=== PATIENT | female | born 1980 | race Caucasian/White ===

== ENCOUNTER 2019-05-29 19:18 | Emergency (ER) | payer BC ==
[~2019-05-29] VITALS: Ht 162.6 cm; Wt 63.5 kg
[2019-05-29 19:35] LABS: URINE BILIRUBIN NEGATIVE (Negative); URINE BLOOD 3+ (Negative); URINE CLARITY CLEAR; URINE COLOR YELLOW; URINE GLUCOSE-RANDOM NEGATIVE (Negative); URINE KETONES NEGATIVE (Negative); URINE LEUKOCYTES-REFLEX TRACE (Negative); URINE NITRITE-REFLEX NEGATIVE (Negative); URINE PROTEIN 2+ (Negative); URINE SPECIFIC GRAVITY >= 1.030 (1.005-1.030); URINE UROBILINOGEN 0.2 E.U./dl (0.2-1.0)
[2019-05-29] MEDS ORDERED: WELLBUTRIN XL150 MG PO (19:46)
[2019-05-29] MEDS ORDERED: OXYCODONE HCL E20 MG PO (19:47)
[2019-05-29] MEDS ORDERED: TORADOL 10 MG T10 MG PO (19:48)
[2019-05-29] MEDS ORDERED: FLEXERIL PO (19:48)
[2019-05-29] MEDS ORDERED: KLONOPIN1 MG PO (19:48)
[2019-05-29] MEDS ORDERED: PHENERGAN 25 MG25 M1 PO (19:52)
[2019-05-29] MEDS ORDERED: FLOMAX0.4 MG PO (19:52)
[2019-05-29 19:59] LABS: BACTERIA-REFLEX None Seen /HPF (None Seen); CASTS None Seen /LPF (None Seen); CRYSTALS None Seen /LPF (None Seen); SQUAMOUS >10 Many /LPF (0-3); URINE RBC >20 Many /HPF (0-2); URINE WBC-REFLEX 0-5 Rare /HPF (0-5)
[2019-05-29 20:20] LABS: ABSOLUTE BASOPHILS 0.1 thou/uL (0.0-0.2); ABSOLUTE EOSINOPHILS 0.4 thou/uL (0.0-0.7); ABSOLUTE LYMPHOCYTES 3.6 thou/uL (0.8-5.3); ABSOLUTE MONOCYTES 0.9 thou/uL (0.0-1.2); ABSOLUTE NEUTROPHILS 6.2 thou/uL (1.6-8.1); BASOPHILS 0.7 %; HEMOGLOBIN 13.3 gm/dL (12.0-15.0); LYMPHOCYTES 32.5 %; MCH 32.7 pg (26.0-34.0); MCHC 34.2 g/dL (28.0-37.0); MCV 95.6 fL (80.0-100.0); MONOCYTES 7.6 %; MPV 8.9 fl. (7.2-11.1); NUCLEATED RBCS 0 /100WBC; PLATELET COUNT* 323 thou/uL (150-400); POLYS 55.2 %; RBC 4.08 mil/uL (4.20-5.00); RDW-CV 13.2 % (10.5-14.5); WBC 11.2 thou/uL (4.0-11.0)
[2019-05-29 20:32] LABS: CALCIUM 8.6 mg/dL (8.5-10.1); CREATININE 0.9 mg/dL (0.6-1.3); POTASSIUM 3.7 mmol/L (3.5-5.1)
[2019-05-29 20:37] LABS: ALBUMIN 3.6 g/dL (3.4-5.0); TOTAL BILIRUBIN 0.2 mg/dL (<0.1-1.0); TOTAL PROTEIN 7.7 g/dL (6.4-8.2)
[2019-05-29] MEDS ORDERED: OXYCODONE HCL20 M1 PO (20:55)
[2019-05-29 21:12] VITALS: BP 106/75
== END 2019-05-29 21:12 | disposition home or self-care (01) ==
LOC: M.ERS 19:18 → EDBD 19:18 → M.ERS 21:12
PROVIDERS: Emergency Medicine
DX: N23 Unspecified renal colic (principal); Z91.041 Radiographic dye allergy status; Z88.1 Allergy status to other antibiotic agents